=== PATIENT | male | born 1945 | race Caucasian/White ===

== ENCOUNTER → 2020-07-06 | Outpatient (CLI) | payer OTHER ==
[~2020-07-06] MED LIST: ALEVE220 MG PO; ASPIRIN325 PO; ASPIRIN81 M2; ATORVASTATIN CA40 MG PO; COREG CR20 MG PO; COZAAR 25 MG TA25 M2 PO; PLAVIX 75 MG TA75 MG PO; PRILOSEC40 MG PO; XARELTO15 MG PO; XARELTO20 MG PO
== END ==
LOC: M.ULTRA 12:49
DX: M79.605 Pain in left leg (principal); M79.604 Pain in right leg